=== PATIENT | female | born 1950 | race African-American/Black ===

== ENCOUNTER 2016-10-18 09:34 | Inpatient (IN) | payer OTHER ==
[~2016-10-18] VITALS: Ht 157.5 cm; Wt 76.0 kg
[~2016-10-18 09:34] MED LIST: MEDROL DOSEPAK4 MG; MICARDIS HCT1 TABLE1 PO; TESSALON200 MG PO; VESICARE5 MG PO; ZITHROMAX Z-PA250 MG PO; biotin; crestor; fish oil; losartan/hctz; osteo-biflex; vitamin d
[2016-10-18 12:06] LABS: EOSINOPHIL (%) 0 % (0-5); HEMATOCRIT 41.1 % (36.0-46.0); IMMATURE GRANULOCYTE (%) 0.5 % (0.0-0.7); IMMATURE GRANULOCYTE COUNT 0.1 K/uL; INSTRUMENT ABS NEUTROPHIL CT 13.5 K/uL; LYMPHOCYTE COUNT 0.9 K/uL (1.0-2.8); MCH 29.3 PG (29.0-34.0); MCHC 33.8 G/DL (30.0-36.0); MCV 86.7 FL (83-99); MONOCYTE (%) 5.4 % (3-12); MONOCYTE COUNT 0.8 K/uL (0-0.8); NEUTROPHIL (%) 87.9 % (45-76); NEUTROPHIL COUNT 13.5 K/uL (1.8-6.4); PLATELET COUNT 250 K/uL (156-360); RBC DIS.WIDTH-CV 15.6 % (11.8-14.6); RBC DIS.WIDTH-SD 47.8 % (39-53); RED BLOOD COUNT 4.74 M/uL (3.80-5.20); WHITE BLOOD COUNT 15.4 K/uL (4.1-10.2)
[2016-10-18 12:15] LABS: ADD MIUA? YES; BILIRUBIN NEGATIVE; BLOOD LARGE; COLOR AMBER ((YELLOW)); GLUCOSE (STRIP) NEGATIVE; KETONES 20; LEUKOCYTES NEGATIVE; NITRITE NEGATIVE; PROTEIN (STRIP) 100; SPECIFIC GRAVITY 1.023 (1.000-1.030)
[2016-10-18 12:16] LABS: CHLORIDE 98 mEq/L (99-109); POTASSIUM 3.2 mEq/L (3.7-5.4); SODIUM 134 mEq/L (136-147)
[2016-10-18 12:18] LABS: GLUCOSE 118 mg/dL (70-99)
[2016-10-18 12:19] LABS: ANION GAP 13 MEQ/L (2-14)
[2016-10-18 12:22] LABS: GFR ESTIMATE (CALCULATED) > 59 mL/min/
[2016-10-18 12:22] LABS: BACTERIA 1+ /HPF; EPITHELIAL CELLS 1+ /HPF; MUCUS 2+ /LPF; WHITE BLOOD CELLS 0-5 /HPF (0-5)
[2016-10-18 12:23] LABS: UREA NITROGEN (BUN) 14 mg/dL (9-23)
[2016-10-18] MEDS ORDERED: HYZAAR 50-121 TABLET PO (13:07)
[2016-10-18] MEDS ORDERED: LIPITOR10 MG PO (13:07)
[2016-10-18] MEDS ORDERED: BETAMETHASONE D45 GM TP (13:08)
[2016-10-18] MEDS ORDERED: VITAMIN D-32000 UNI2 PO (13:08)
[2016-10-18] MEDS ORDERED: MEGA BIOTIN10000 MCG PO (13:09)
[2016-10-18] MEDS ORDERED: FISH OIL 1,2001 EAC4 PO (13:09)
[2016-10-18 16:37] VITALS: BP 111/58
[2016-10-18 20:00] VITALS: BP 111/53
[2016-10-19] VITALS (7 sets, daily range): BP systolic 93–130; BP diastolic 51–66
[2016-10-19 06:44] LABS: EOSINOPHIL (%) 0 % (0-5); IMMATURE GRANULOCYTE (%) 0.7 % (0.0-0.7); IMMATURE GRANULOCYTE COUNT 0.1 K/uL; INSTRUMENT ABS NEUTROPHIL CT 14.5 K/uL; LYMPHOCYTE COUNT 1.5 K/uL (1.0-2.8); MCH 28.6 PG (29.0-34.0); MCHC 32.4 G/DL (30.0-36.0); MCV 88.1 FL (83-99); MEAN PLAT.VOLUME 9.6 uM^3 (9.5-12.4); MONOCYTE (%) 5.2 % (3-12); MONOCYTE COUNT 0.9 K/uL (0-0.8); NEUTROPHIL COUNT 14.5 K/uL (1.8-6.4); PLATELET COUNT 207 K/uL (156-360); RBC DIS.WIDTH-CV 14.3 % (11.8-14.6); RBC DIS.WIDTH-SD 45.8 % (39-53)
[2016-10-19 07:07] LABS: ANION GAP 10 MEQ/L (2-14); CHLORIDE 102 MEQ/L (99-109); GFR ESTIMATE (CALCULATED) > 59 mL/min/; POTASSIUM 3.4 MEQ/L (3.7-5.4); SAMPLE HEMOLYSIS CHECK 0; SAMPLE ICTERIC CHECK 0; SAMPLE LIPEMIA CHECK 0; SODIUM 135 MEQ/L (136-147); UREA NITROGEN (BUN) 13 mg/dL (9-23)
[2016-10-19 07:10] LABS: GLUCOSE 86 mg/dL (70-99)
[2016-10-19 09:21] LABS: INTERNAL CONTROL VALID? YES
[2016-10-19 11:36] LABS: METH RESISTANT S AUREUS PCR NEGATIVE (NEGATIVE); PROBE CHECK PASS; SPECIMEN PROCESSING CONTROL PASS
[2016-10-20 03:45] VITALS: BP 116/61
[2016-10-20 07:06] LABS: HEMATOCRIT 34.1 % (36.0-46.0); MCH 29.8 PG (29.0-34.0); MCHC 34.3 G/DL (30.0-36.0); MCV 86.8 FL (83-99); MEAN PLAT.VOLUME 9.8 uM^3 (9.5-12.4); PLATELET COUNT 220 K/uL (156-360); RBC DIS.WIDTH-CV 14.3 % (11.8-14.6); RBC DIS.WIDTH-SD 46.1 % (39-53); RED BLOOD COUNT 3.93 M/uL (3.80-5.20)
[2016-10-20 07:31] VITALS: BP 122/66
[2016-10-20 07:31] LABS: ANION GAP 10 MEQ/L (2-14); CHLORIDE 104 MEQ/L (99-109); POTASSIUM 3.7 MEQ/L (3.7-5.4); SAMPLE HEMOLYSIS CHECK 0; SAMPLE ICTERIC CHECK 0; SAMPLE LIPEMIA CHECK 0; SODIUM 135 MEQ/L (136-147)
[2016-10-20 07:37] LABS: GFR ESTIMATE (CALCULATED) > 59 mL/min/; GLUCOSE 93 mg/dL (70-99); UREA NITROGEN (BUN) 8 mg/dL (9-23)
[2016-10-20] MEDS ORDERED: LEVAQUIN750 MG PO (11:23)
== END 2016-10-20 14:53 | disposition home or self-care (01) | DRG 178 ==
LOC: EME 09:34 → ENRESERV 12:46 → EDOF 13:33 → 5SOUTH 16:19
PROVIDERS: Internal Medicine; Physician Assistant; Physician Assistant Medical
DX: A48.1 Legionnaires' disease (principal); J44.1 Chronic obstructive pulmonary disease with (acute) exacerbation; E78.5 Hyperlipidemia, unspecified; I10 Essential (primary) hypertension; F41.9 Anxiety disorder, unspecified; F17.200 Nicotine dependence, unspecified, uncomplicated; E66.9 Obesity, unspecified; Z68.30 Body mass index [BMI] 30.0-30.9, adult
CPT/HCPCS: 70450; 71020; 71275; 80048; 80200; 81003; 83605; 85025; 85027; 85379; 87040; 87086; 87449; 87641; 94010; 94640; 94640 76; 99202; 99281; 99285; J0456; J0692; J0696; J1650; J1956; J3260; J3370; J7030; J7050